=== PATIENT | female | born 1985 | race African-American/Black ===

== ENCOUNTER 2019-09-19 13:23 | Emergency (ER) | payer OTHER ==
[~2019-09-19] VITALS: Ht 152.4 cm; Wt 54.4 kg
[2019-09-19 14:10] LABS: PLATELET COUNT 283 K/uL (152-353)
[2019-09-19 14:17] LABS: POTASSIUM 3.6 mmol/L (3.6-5.2)
[2019-09-19 14:59] VITALS: BP 118/63; TEMP 98.4
== END 2019-09-19 15:08 | disposition home or self-care (01) ==
LOC: ED 13:23
PROVIDERS: Hospitalist
DX: R10.84 Generalized abdominal pain (principal); K59.09 Other constipation
CPT/HCPCS: 36415; 80053; 81000; 81025; 82150; 83690; 85027; 99283

== ENCOUNTER 2020-12-13 14:35 | Emergency (ER) | payer OTHER ==
[~2020-12-13] VITALS: Ht 147.3 cm; Wt 60.8 kg
[2020-12-13 15:00] VITALS: BP 131/75; TEMP 98.2
== END 2020-12-13 18:31 | disposition home or self-care (01) ==
LOC: ED 14:35
DX: Z53.21 Procedure and treatment not carried out due to patient leaving prior to being seen by health care provider (principal); M79.604 Pain in right leg
CPT/HCPCS: 99281